=== PATIENT | female | born 1960 ===

== ENCOUNTER 2021-10-27 11:03 | Outpatient (REF) | payer OTHER, SELFPAY ==
[2021-10-27 13:39] LABS: MANUAL DIFF FLAG NO
[2021-10-27 13:47] LABS: Basophils Percent Auto 0.4 % (0-2); Eosinophils Absolute Auto 0.6 X10*3/uL (0.0-0.4); Eosinophils Percent Auto 7.7 % (0-4); Hematocrit 46.5 % (37.0-47.0); Hemoglobin 14.6 g/dl (12.0-16.0); Imm Gran Abs Auto 0.02 X10*3/uL (0.00-0.03); Imm Gran Pct Auto 0.3 % (0.0-0.4); Lymphocytes Absolute Auto 2.9 X10*3/uL (1.2-4.9); Lymphocytes Percent Auto 37.3 % (20-40); Mean Corpuscular HGB Conc 31.4 g/dl (31.0-35.0); Mean Corpuscular Hemoglobin 28.1 pg (27.0-33.0); Mean Corpuscular Volume 89.4 fL (80.0-98.0); Mean Platelet Volume 10.8 fL (9.4-12.3); Monocytes Absolute Auto 0.5 X10*3/uL (0.1-1.2); Monocytes Percent Auto 5.9 % (2-11); Neutrophils Absolute Auto 3.8 x10*3/uL (2.0-8.3); Neutrophils Percent Auto 48.4 % (45-73); Platelet Count 379 X10*3/uL (160-400); Red Cell Distribution Width 12.3 % (11.0-16.0); White Blood Count 7.8 X10*3/uL (4.8-10.8)
[2021-10-27 14:01] LABS: Estimated Average Glucose 194 mg/dL; Hemoglobin A1c % 8.4 %
[2021-10-27 14:13] LABS: Creatinine Urine 313.71 mg/dL; Microalbum/Creatinine Ratio Ur 6.6 ug/mg cr
[2021-10-27 14:30] LABS: Alanine Aminotransferase 12 U/L (0-31); Albumin Level 3.9 g/dL (3.5-5.0); Alkaline Phosphatase 124 U/L (39-117); Anion Gap 16 (12-20); Aspartate Amino Transferase 18 U/L (5-31); Blood Urea Nitrogen 11 mg/dL (9-16); Calcium 9.7 mg/dL (8.4-10.2); Carbon Dioxide 27 mmol/L (22-29); Chloride 104 mmol/L (96-108); Cholesterol 233 mg/dL; Estimated Glomerular Filt Rate > 60; Glucose Fasting 196 mg/dL (60-99); HDL Cholesterol 46 mg/dL; LDL Cholesterol Calculated 150 mg/dl; Potassium 4.7 mmol/L (3.3-5.1); Sodium 142 mmol/L (135-145); Total Protein 7.4 g/dL (6.5-8.0); Triglycerides 187 mg/dL
[2021-10-27 14:39] LABS: TSH reflex Free T4 1.52 uIU/mL (0.32-4.0)
[2021-10-27 14:55] LABS: Folate 10.4 ng/mL (> or = 4.0); Vitamin B12 173 pg/mL (200-900)
[2021-10-31 14:41] LABS: Vitamin D 25-OH, D2 <4 ng/mL; Vitamin D 25-OH, D3 8 ng/mL; Vitamin D 25-OH, Total 8 ng/mL (30-100)
== END 2021-10-27 11:04 | disposition home or self-care (01) ==
LOC: HO.HMGCLDS 11:03
PROVIDERS: Visit Provider Nurse Practitioner Acute Care
DX: E11.9 Type 2 diabetes mellitus without complications (principal)
CPT/HCPCS: 36415; 80053; 80061; 82043; 82306; 82607; 82746; 83036; 84443; 85025

== ENCOUNTER 2022-01-11 14:13 | Outpatient (REF) | payer OTHER, SELFPAY ==
--- NOTE | ~2022-01-11 | US_ITS ---
EXAMINATION: US RETROPERITONEAL LIMITED (RENAL ONLY) CLINICAL INFORMATION: Right flank pain. COMPARISON: None TECHNIQUE: Grayscale and color imaging of the kidneys FINDINGS: RIGHT KIDNEY: 11.0 x 6.0 x 5.8 cm (SAG x AP x TRV). The kidney is normal in size, contour, and echogenicity. Renal cortical thickness is normal. No calculi or focal parenchymal lesions. No hydronephrosis. LEFT KIDNEY: 11.4 x 6.0 x 5.2 cm (SAG x AP x TRV). The kidney is normal in size, contour, and echogenicity. Renal cortical thickness is normal. No calculi or focal parenchymal lesions. No hydronephrosis. US/US renal BI IMPRESSION: Normal renal ultrasound.
== END 2022-01-11 14:14 | disposition home or self-care (01) ==
LOC: HO.HMGCX 14:13
PROVIDERS: Visit Provider Nurse Practitioner Acute Care
DX: R10.9 Unspecified abdominal pain (principal)
CPT/HCPCS: 76775

== ENCOUNTER 2023-03-10 09:56 | Outpatient (REF) | payer OTHER, SELFPAY ==
--- NOTE | ~2023-03-10 | US_ITS ---
EXAMINATION: ULTRASOUND EXTREMITY NONVASCULAR CLINICAL INFORMATION: Arm lump for 3 months. Intermittently tender. COMPARISON: None available. TECHNIQUE: Grayscale and color ultrasound of the left upper arm in the area of palpable abnormality. FINDINGS: There is an oval-shaped hypoechoic area seen just deep to the skin in area of palpable abnormality. This is similar in echotexture to the adjacent subcutaneous fat and may represent a lipoma. This measures 3.3 x 1.8 x 0.8 cm. This appears avascular. US/US extremity nonvascular sanchez IMPRESSION: Question 3.3 x 1.8 x 0.8 lipoma in the left upper arm versus prominent subcutaneous fat.
[2023-03-10 11:28] LABS: Hematocrit 44.6 % (37.0-47.0); Hemoglobin 14.2 g/dl (12.0-16.0); Mean Corpuscular HGB Conc 31.8 g/dl (31.0-35.0); Mean Platelet Volume 10.3 fL (9.4-12.3); Platelet Count 355 X10*3/uL (160-400); Red Blood Count 5.07 X10*6/uL (4.20-5.50); Red Cell Distribution Width 12.9 % (11.0-16.0); White Blood Count 8.3 X10*3/uL (4.8-10.8)
[2023-03-10 11:53] LABS: Creatinine Urine 306.04 mg/dL; Microalbum/Creatinine Ratio Ur 7.5 ug/mg cr
[2023-03-10 12:14] LABS: Alanine Aminotransferase 12 U/L (0-31); Albumin Level 4.1 g/dL (3.5-5.0); Anion Gap 14 (12-20); Aspartate Amino Transferase 16 U/L (5-31); Bilirubin Total 0.9 mg/dL (0.0-1.0); Blood Urea Nitrogen 13 mg/dL (9-16); Carbon Dioxide 27 mmol/L (22-29); Chloride 103 mmol/L (96-108); Cholesterol 213 mg/dL; Estimated Glomerular Filt Rate > 60; Glucose Random 146 mg/dL (60-115); HDL Cholesterol 52 mg/dL; LDL Cholesterol Calculated 132 mg/dl; Sodium 140 mmol/L (135-145); Total Protein 7.5 g/dL (6.5-8.0); Triglycerides 145 mg/dL
[2023-03-10 12:43] LABS: Folate 8.5 ng/mL (> or = 4.0); TSH reflex Free T4 2.66 uIU/mL (0.32-4.0); Vitamin B12 224 pg/mL (200-900); Vitamin D 25-OH Total 20.7 ng/mL (>30)
[2023-03-10 12:52] LABS: Alkaline Phosphatase 122 U/L (39-117)
== END 2023-03-10 09:57 | disposition home or self-care (01) ==
LOC: HO.HMGCX 09:56
PROVIDERS: PCP Nurse Practitioner Family; Visit Provider Nurse Practitioner Family
DX: E78.5 Hyperlipidemia, unspecified (principal); E11.65 Type 2 diabetes mellitus with hyperglycemia; R22.30 Localized swelling, mass and lump, unspecified upper limb; E55.9 Vitamin D deficiency, unspecified
CPT/HCPCS: 36415; 76882; 80053; 80061; 82043; 82306; 82607; 82746; 84443; 85027

== ENCOUNTER 2023-03-11 10:11 | Outpatient (REF) | payer OTHER, SELFPAY ==
--- NOTE | ~2023-03-11 | MM_ITS ---
EXAMINATION: MM SCREENING DIGITAL BREAST TOMOSYNTHESIS, BILATERAL CLINICAL INFORMATION: Screening. Asymptomatic. The lifetime risk of breast cancer based on the Tyrer-Cuzick Model is 13%. COMPARISON: Outside mammography: 10/01/2021, 10/19/2017 ([facility]). TECHNIQUE: Digital breast tomosynthesis is performed in both the craniocaudal and mediolateral oblique views along with computer-aided detection (CAD). Synthesized 2D images are generated from the tomosynthesis. Additional right CC view is provided. FINDINGS: The breasts are almost entirely fatty (ACR BI-RADS breast composition Category a). Background stromal and fibroglandular densities are similar to prior outside exams. No developing density or architectural abnormality. Small intramammary node posterior upper outer right breast stable. There are no significant masses, abnormal calcifications, or other abnormalities. The axilla and skin contours are unremarkable. MM/MM tomosynthesis screening BI IMPRESSION: No mammographic evidence of malignancy. ASSESSMENT: BI-RADS 2: Benign RECOMMENDATION: Routine annual mammography screening. This patient's information was entered into a reminder system with a target due date for their next mammogram.
== END 2023-03-11 10:12 | disposition home or self-care (01) ==
LOC: HO.MAMMO 10:11
PROVIDERS: Visit Provider Nurse Practitioner Family
DX: Z12.31 Encounter for screening mammogram for malignant neoplasm of breast (principal)
CPT/HCPCS: 77063; 77067

== ENCOUNTER 2023-04-01 14:03 | Outpatient (REF) | payer OTHER, SELFPAY ==
[2023-04-01 17:12] LABS: Estimated Average Glucose 194 mg/dL; Hemoglobin A1c % 8.4 %
[2023-04-01 19:45] LABS: Glucose Random 78 mg/dL (60-115)
== END 2023-04-01 14:04 | disposition home or self-care (01) ==
LOC: HO.LAB 14:03
PROVIDERS: PCP Nurse Practitioner Family; Visit Provider Physician Assistant Surgical
DX: E66.9 Obesity, unspecified (principal); E11.65 Type 2 diabetes mellitus with hyperglycemia; E78.5 Hyperlipidemia, unspecified; Z79.84 Long term (current) use of oral hypoglycemic drugs; Z79.899 Other long term (current) drug therapy; Z68.34 Body mass index [BMI] 34.0-34.9, adult
CPT/HCPCS: 36415; 82947; 83036; 99453

== ENCOUNTER → 2023-04-07 08:49 | Outpatient (BNVA) | payer OTHER, SELFPAY | PROVIDERS: Visit Provider Physician Assistant ==

== ENCOUNTER → 2023-04-08 13:56 | Outpatient (BNVA) | payer OTHER, SELFPAY | PROVIDERS: PCP Nurse Practitioner Family; Visit Provider Physician Assistant Surgical | DX: E11.65 Type 2 diabetes mellitus with hyperglycemia (principal); E66.9 Obesity, unspecified ==

== ENCOUNTER 2023-04-13 13:03 | Outpatient (REF) | payer OTHER, SELFPAY | END 2023-04-13 13:04 | disposition home or self-care (01) | LOC: HO.LNP 13:03 | PROVIDERS: PCP Nurse Practitioner Family; Referring Provider Nurse Practitioner Family; Visit Provider Surgery | DX: D17.22 Benign lipomatous neoplasm of skin and subcutaneous tissue of left arm (principal); Z79.899 Other long term (current) drug therapy | CPT/HCPCS: 11403; 88304 ==

== ENCOUNTER → 2023-04-15 14:00 | Outpatient (BNVA) | payer OTHER, SELFPAY | PROVIDERS: PCP Nurse Practitioner Family; Visit Provider Physician Assistant Surgical ==

== ENCOUNTER → 2023-04-22 14:12 | Outpatient (BNVA) | payer OTHER, SELFPAY | PROVIDERS: PCP Nurse Practitioner Family; Visit Provider Physician Assistant Surgical ==

== ENCOUNTER 2023-04-25 09:40 | Outpatient (AMB) | payer OTHER, SELFPAY ==
--- NOTE | 2023-04-25 09:45 | A.OFFVIS_ITS ---
Intake Vital Signs 04/25/23 09:46 Height 5 ft 3 in Weight 192 lb BMI 34.0 BP 116/61 Blood Pressure Location Rt brachial Position Sitting Pulse 74 Intake Visit Reasons: Follow up exc mass lt upper arm Intake Note: Patient here s/p exc on Lt upper arm. Incision healing well. Patient noticed white suture coming up. Denies bleeding or itch. Patient recently taken off metformin and Trulicity. Conversion Man Required: No Accompanied by: Self / Same As Patient Allergies Penicillins Allergy (Severe, Verified 04/25/23 09:47) swollen face adhesive tape Allergy (Intermediate, Verified 04/25/23 09:47) skin tears erythromycin base Allergy (Intermediate, Verified 04/25/23 09:47) hives, itchy and swollen sulfamethoxazole [From Septra] Allergy (Intermediate, Verified 04/25/23 09:47) itchy, swollen face trimethoprim [From Septra] Allergy (Intermediate, Verified 04/25/23 09:47) itchy, swollen face diazepam [From Valium] Allergy (Unknown, Verified 04/25/23 09:47) problems swallowing HPI HPI Comments History of Present Illness Details Patient presents for follow-up. She has no wound issues or complaints. Pathology is benign. [facility] Medical History Anemia Cervical cancer Controlled type 2 diabetes mellitus Encounter to establish care Obesity (BMI 30-39.9) Scurvy Surgical History History of cataract surgery History of cholecystectomy History of gastric bypass History of total hysterectomy Hx of colonoscopy Family History Mother Colon cancer Other Mental health disorder Social History Housing: House Alcohol intake: never Patient Tobacco Use Status: Former Tobacco user e-Cigarette/Vaping Use: Never Used Second Hand Smoke Exposure: No service: No Current occupational status: employed Current occupation: [employer] Cognitive needs: No Hearing needs: No Vision needs: Yes (Glasses) Physical Exam Vital Signs: Last Vital Signs Pulse 74 04/25/23 09:46 BP 116/61 04/25/23 09:46 BMI result Body Mass Index 34.0 Extrem Other: Left shoulder wound is clean dry and intact. She has extruding a suture from the inferior aspect of the incision which was uneventfully removed. Sterile dressing was applied. Assessment & Plan Assessment & Plan (1) Skin lump of arm: Comment: Patient has been given local wound instructions, and will follow-up as directed or p.r.n. Code(s): R22.30 - Localized swelling, mass and lump, unspecified upper limb Plan Patient has been given local instructions, and will follow-up p.r.n. Coding Level of Care Code Global (90342) Diagnoses Skin lump of arm R22.30
[2023-04-25 09:46] VITALS: BP 116/61; PULSE 74; BMI 34.0
== END 2023-04-25 09:57 | disposition home or self-care (01) ==
PROVIDERS: PCP Nurse Practitioner Family; Visit Provider Surgery
DX: R22.30 Localized swelling, mass and lump, unspecified upper limb (principal)
CPT/HCPCS: 99024

== ENCOUNTER → 2023-04-25 09:40 | Outpatient (BNVA) | payer OTHER, SELFPAY | PROVIDERS: PCP Nurse Practitioner Family; Visit Provider Surgery ==

== ENCOUNTER 2024-04-06 08:38 | Day surgery (SDC) | payer OTHER, SELFPAY ==
[2023-11-10 14:53] VITALS: BMI 34.0
--- NOTE | 2024-04-05 10:51 | HO.ANESPROP2 ---
Documented by User: Leslie Sorto NP 04/05/24 10:52 HPI - Anesthesia Eval Consult details Narrative: 64yo F for Colonoscopy Anesthesia Pre-Procedure Meds Is the patient on any of the following meds?: GLP1/DPP4 PMFSH Active Problems Active Problems: All Active Problems History of colon polyps (Acute) Rash (Acute) Skin lump of arm (Acute) Screening for breast cancer (Acute) Screening for colon cancer (Acute) Sinusitis (Acute) Rhinitis (Acute) History of cigarette smoking (Acute) Cervical spondylosis (Acute) Hyperlipidemia (Acute) Chronic hip pain, bilateral (Acute) Physical exam (Acute) Uncontrolled type 2 diabetes mellitus with hyperglycemia (Acute) Right flank pain (Acute) Iron deficiency anemia (Acute) Anxiety (Acute) Vitamin D deficiency (Acute) Type 2 diabetes mellitus with hyperglycemia (Acute) B12 deficiency anemia (Acute) Anemia (Acute) Obesity (BMI 30-39.9) (Acute) History of gastric bypass (Acute) Cervical cancer (Acute) Scurvy (Acute) Controlled type 2 diabetes mellitus (Acute) Past Medical History Medical History Encounter to establish care Anemia Obesity (BMI 30-39.9) Cervical cancer Scurvy Controlled type 2 diabetes mellitus Family History Family History Mother Colon cancer Other Mental health disorder Surgical History Surgical History Hx of colonoscopy History of gastric bypass History of cataract surgery History of cholecystectomy History of total hysterectomy Social History Social History Housing: House Alcohol intake: never Patient Tobacco Use Status: Former Tobacco user e-Cigarette/Vaping Use: Never Used Second Hand Smoke Exposure: No Use of substances other than those prescribed or required for medical reasons: No Are you DNR?: No Advance Directives: No Advance Directives Information Provided: Yes service: No Current occupational status: employed Current occupation: [employer] Cognitive needs: No Hearing needs: No Vision needs: Yes (Glasses) Meds Allergies Allergy/AdvReac Type Severity Reaction Status Date / Time Penicillins Allergy Severe swollen Verified 04/25/23 09:47 face adhesive tape Allergy Intermediate skin tears Verified 04/25/23 09:47 erythromycin base Allergy Intermediate hives, Verified 04/25/23 09:47 itchy and swollen sulfamethoxazole Allergy Intermediate itchy, Verified 04/25/23 09:47 [From Septra] swollen face trimethoprim [From Septra] Allergy Intermediate itchy, Verified 04/25/23 09:47 swollen face diazepam [From Valium] Allergy Unknown problems Verified 04/25/23 09:47 swallowing Exam Height,Weight and Vital Signs: Height 5 ft 3 in Weight 87.09 kg Assessment and Plan Assessment Anesthesia Assessment: Chart Reviewed Documented by User: Sonia Henriquez MD 04/06/24 09:34 PMFSH Past Medical History Medical History Encounter to establish care Anemia Obesity (BMI 30-39.9) Cervical cancer Scurvy Controlled type 2 diabetes mellitus Family History Family History Mother Colon cancer Other Mental health disorder Family history of problems with anesthesia: No Surgical History Surgical History Hx of colonoscopy History of gastric bypass History of cataract surgery History of cholecystectomy History of total hysterectomy History of Problems with Anesthesia: No Social History Social History Housing: House Alcohol intake: never Patient Tobacco Use Status: Former Tobacco user e-Cigarette/Vaping Use: Never Used Second Hand Smoke Exposure: No Use of substances other than those prescribed or required for medical reasons: No Are you DNR?: No Advance Directives: No Advance Directives Information Provided: Yes service: No Current occupational status: employed Current occupation: [employer] Cognitive needs: No Hearing needs: No Vision needs: Yes (Glasses) Meds Allergies Allergy/AdvReac Type Severity Reaction Status Date / Time Penicillins Allergy Severe swollen Verified 04/25/23 09:47 face adhesive tape Allergy Intermediate skin tears Verified 04/25/23 09:47 erythromycin base Allergy Intermediate hives, Verified 04/25/23 09:47 itchy and swollen sulfamethoxazole Allergy Intermediate itchy, Verified 04/25/23 09:47 [From Septra] swollen face trimethoprim [From Septra] Allergy Intermediate itchy, Verified 04/25/23 09:47 swollen face diazepam [From Valium] Allergy Unknown problems Verified 04/25/23 09:47 swallowing Exam Airway Mallampati Class: II TM Dist: >3cm Neck ROM: Full Partial: Upper Heart: rrr Lungs: cta Assessment and Plan Assessment Anesthesia Assessment: Anesthesia Plan Discussed Final Anesthetic Review Family History of Problems with Anesthesia: No History of Problems with Anesthesia: No NPO: Yes ASA Class: III Final Preanesthetic Review: No Changes in Pt Med Stat, Meds/Allgs Chart Reviewed, Consent Obtained/Reviewed and Anes Risks/Benef Reviewed Patient Risk: Intermediate Procedure Risk: Low Anesthetic Plan Anesthetic Plan: MAC: Disposition: Standard PACU
--- NOTE | 2024-04-06 08:43 | MHC.SHP ---
Pre-Procedural Eval Section A - 24 Hr Update-Section A only Date of Service: 04/06/24 The patient is an INPATIENT: No The patient has been examined within 24 hours of the surgical procedure. The History & Physical has been completed within 30 days and I have reviewed it.: No Section B - Complete if H&P > 30 days Chief Complaint: Surveillance for colon polyps Relevant Family History (Specify if Yes): Yes Relevant Social History: None Present Medications: see Short Stay Collaborative assessment Medical History: Significant History (Anemia Cervical cancer Controlled type 2 diabetes mellitus Encounter to establish care Obesity (BMI 30-39.9) Scurvy) History of Previous Operations: Relevant previous surgery/procedure and date(s) (History of cataract surgery History of cholecystectomy History of gastric bypass History of total hysterectomy Hx of colonoscopy) Allergies: Allergies Allergy/AdvReac Type Severity Reaction Status Date / Time Penicillins Allergy Severe swollen Verified 04/25/23 09:47 face adhesive tape Allergy Intermediate skin tears Verified 04/25/23 09:47 erythromycin base Allergy Intermediate hives, Verified 04/25/23 09:47 itchy and swollen sulfamethoxazole Allergy Intermediate itchy, Verified 04/25/23 09:47 [From Septra] swollen face trimethoprim [From Septra] Allergy Intermediate itchy, Verified 04/25/23 09:47 swollen face diazepam [From Valium] Allergy Unknown problems Verified 04/25/23 09:47 swallowing Review of Systems Sugical H&P ROS: Negative: Constitution, Respiratory and Gastrointestinal Exam Surgical H&P Exam: Normal: Heart, Normal: Lungs, Normal: Extremities and Normal: Abdomen Plan Diagnosis/Plan: Unchanged I have reviewed the history and physical and performed a pertinent physical examination on my patient. No changes have occurred unless specified. Time Spent With Patient Time: Total time managing care of this patient today ____ minutes.
[2024-04-06 08:47] VITALS: BP 118/62; PULSE 80; RESP 16; TEMP 36.3; O2SAT 97
[2024-04-06 08:49] VITALS: BMI 36.7
[2024-04-06 09:04] LABS: Glucose, Whole Blood 177 mg/dL (60-115)
[2024-04-06] MEDS: Lactated Ringers 1,000 ML 100 ML IVCONT (09:05)
--- NOTE | 2024-04-06 10:46 | P.OPN-COLO_ITS ---
Colonoscopy Operative Note Operative Note Date of Service: 04/06/24 Narrative: COLONOSCOPY TILL CECUM WITH SNARE POLYPECTOMY AND SUBMUCOSAL INJECTION Pre-op diagnosis: Surveillance for colon polyps. Post-op diagnosis:? Colon polyps, Diverticulosis, hemorrhoids Endoscopist:? Harmeet Godoy MD Anesthesia:?MAC Consent: Indications for the procedure and potential complications of bleeding, perforation, reaction to medications and missed diagnosis were discussed with the patient and informed consent was obtained. Instrument: Olympus PCF H 190 L variable stiffness pediatric colonoscope Monitoring: Vital signs and clinical assessment, intermittent blood pressure monitoring, continuous EKG monitoring, Pulse oximetry and Carbon Dioxide monitoring were done throughout the procedure. Please see anesthesia flowsheet. Colon withdrawl time was 45 minutes. Procedure: The patient was placed in the left lateral decubitis position and pre-procedure medications were administered. After a digital rectal examination of the ano-rectum, the video colonoscope was inserted into the rectum and advanced through the colon to the cecum. The colonoscope was slowly withdrawn in a retrograde panoramic fashion and the colon mucosa was carefully examined including a retroflexed view of the rectum. Findings and interventions are described below. Procedure Difficulty: There was a sharp turn at 40 cms which was navigated with some diffiuculty Findings: Terminal Ileum: Not evaluated Cecum: Normal Ascending Colon: A 2 cms flat polyp in the mid AC. Polyp was raised with 4 cc of Eleview. Polyp was behind a fold and difficult to snare despite moving the pt to a supine position. It was snared using a large (3 cms) stiff snare. Polypectomy site was marked with Nancie ink. Transverse Colon: Normal Descending Colon: Moderate diverticulosis Sigmoid Colon: A 10- 12mm sessile polyp - removed with a hot snare. A few diminutive appearing polyps in the recto-sigmoid which were not removed. Moderate diverticulosis Rectum: Normal Ano-rectum: Small internal hemorrhoids Colon preparation: Good after some irrigation. [place] Bowel Preparation Scale Right colon; 2 Transverse colon: 2 Left colon; 2 (0 = Unprepared colon segment with mucosa not seen due to solid stool that cannot be cleared. 1 = Portion of mucosa of the colon segment seen, but other areas of the colon segment not well seen due to staining, residual stool and/or opaque liquid. 2 = Minor amount of residual staining, small fragments of stool and/or opaque liquid, but mucosa of colon segment seen well. 3 = Entire mucosa of colon segment seen well with no residual staining, small fragments of stool or opaque liquid) Impression and Post Procedure Diagnosis: Colonoscopy Findings: Two medium sized polyps were removed Moderate diverticulosis seen in the left colon Small hemorrhoids on retroflexed exam. Plan: I will send a letter with biopsy results. Pt has a FU appointment on 06/04/24 with OTONIEL Uriostegui, Repeat Colonoscopy in 1 year to check polypectomy site in the AC (if AC polyp is adenomatous) and 5 year if polyps are hyperplastic. Above findings were reviewed with the patient and relevant handouts were given and the discharge area.
[2024-04-06 10:51] VITALS: BP 118/52; PULSE 56; RESP 16; TEMP 36.1; O2SAT 98
[2024-04-06 11:06] VITALS: BP 130/60; PULSE 65; RESP 18; TEMP 36.2; O2SAT 100
== END 2024-04-06 11:31 | disposition home or self-care (01) ==
PROVIDERS: PCP Nurse Practitioner Family; Visit Provider Internal Medicine Gastroenterology
PROC: 0DJD8ZZ Inspection of Lower Intestinal Tract, Via Natural or Artificial Opening Endoscopic (ICD-10-PCS; CPT 45378; principal; 2024-04-06 09:20)
DX: Z12.11 Encounter for screening for malignant neoplasm of colon (principal); Z86.010 Personal history of colon polyps; K63.5 Polyp of colon; K57.30 Diverticulosis of large intestine without perforation or abscess without bleeding; K64.8 Other hemorrhoids; E11.65 Type 2 diabetes mellitus with hyperglycemia; E78.5 Hyperlipidemia, unspecified; E55.9 Vitamin D deficiency, unspecified; E54 Ascorbic acid deficiency; D50.9 Iron deficiency anemia, unspecified; Z79.51 Long term (current) use of inhaled steroids; Z79.85 Long-term (current) use of injectable non-insulin antidiabetic drugs; Z79.899 Other long term (current) drug therapy; Z88.0 Allergy status to penicillin; Z88.1 Allergy status to other antibiotic agents; Z88.8 Allergy status to other drugs, medicaments and biological substances; Z98.890 Other specified postprocedural states; Z98.84 Bariatric surgery status; Z87.891 Personal history of nicotine dependence
CPT/HCPCS: 45385; 45381; 82947; 88305; J2704

== ENCOUNTER → 2024-04-06 08:38 | Outpatient (BNV) | payer OTHER, SELFPAY | PROVIDERS: PCP Nurse Practitioner Family; Visit Provider Internal Medicine Gastroenterology | DX: Z12.11 Encounter for screening for malignant neoplasm of colon (principal); Z86.010 Personal history of colon polyps; K63.5 Polyp of colon; K57.90 Diverticulosis of intestine, part unspecified, without perforation or abscess without bleeding | CPT/HCPCS: 45381; 45385 ==